=== PATIENT | male | born 1970 | race African-American/Black ===

== ENCOUNTER 2018-06-10 17:34 | Emergency (ER) | payer OTHER ==
[~2018-06-10] VITALS: Ht 170.2 cm; Wt 65.8 kg
[2018-06-10 17:55] VITALS: BP 159/93
[2018-06-10] MEDS ORDERED: AMOX1TAB11 PO (18:19)
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
== END 2018-06-10 18:41 | disposition home or self-care (01) ==
LOC: ER 17:34
DX: S61.451A Open bite of right hand, initial encounter (principal); W50.3XXA Accidental bite by another person, initial encounter; Y93.89 Activity, other specified; Y92.89 Other specified places as the place of occurrence of the external cause; Y99.8 Other external cause status
CPT/HCPCS: 99283

== ENCOUNTER 2018-12-11 16:37 | Emergency (ER) | payer OTHER ==
[~2018-12-11] VITALS: Ht 170.2 cm; Wt 65.8 kg
[~2018-12-11 16:37] MED LIST: AMOX1TAB11 PO
[2018-12-11] MEDS ORDERED: IV NORMAL SALINE 1000ML BAG 1,000 ML IV SCH (16:54)
[2018-12-11] MEDS ORDERED: ONDANSETRON PF 4 MG/2 ML VIAL. IV ONE (17:00)
[2018-12-11] MEDS ORDERED: FAMOTIDINE 20 MG/2 ML VIAL IVP ONE (17:00)
[2018-12-11] MEDS ORDERED: LIDO:MAALOX 1:1 20 ML SINGLE DOSE. SWSW ONE (17:00)
--- NOTE | 2018-12-11 17:13 | PHYS DOC ---
Past Medical History Past Medical History: No Pertinent History (BEAU KENNY MD) Past Surgical History: No Surgical History (BEAU KENNY MD) Alcohol Use: None Drug Use: Marijuana Social History Narrative: Denies other drug use (BEAU KENNY MD) Adult General Chief Complaint Chief Complaint: NAUSEA/VOMITING/DIARRHA HPI HPI Patient is a 47 y/o male who presents to the ED for evaluation. He reports developing some generalized aching upper abdominal pain about 5 days ago, and the pain has been fairly constant. He has had a few episodes of vomiting, but has not been eating as much because of his nausea and pain. He last vomited about 2 days ago. He has had some mild loose stools, but nothing of significance. He has not had any fevers or chills. He denies any chest pain shortness of breath. He does admit to smoking marijuana several times daily, but denies any other drug use or alcohol use. There are no particular alleviating or exacerbating factors to his symptoms. (BEAU KENNY MD) Review of Systems Review of Systems Constitutional: Denies fever or chills [] Eyes: Denies change in visual acuity, redness, or eye pain [] HENT: Denies nasal congestion or sore throat [] Respiratory: Denies cough or shortness of breath [] Cardiovascular: The patient denies any shortness of breath, chest pain, palpitations, or orthopnea [] GI: No additional information not addressed in HPI [] : Denies dysuria or hematuria [] Musculoskeletal: Denies back pain or joint pain [] Integument: Denies rash or skin lesions [] Neurologic: Denies headache, focal weakness or sensory changes [] Endocrine: Denies polyuria or polydipsia [] All other systems were reviewed and found to be within normal limits, except as documented in this note. (BEAU KENNY MD) Current Medications Current Medications Current Medications Medications (Trade) Dose Ordered Sig/Addison Start Time Stop Time Status Last Admin Dose Admin Famotidine (Pepcid Vial) 20 mg 1X ONCE 12/11/18 17:00 12/11/18 17:01 DC 12/11/18 17:39 20 MG Multi-Ingredient Mouthwash/Gargle (Gi Cocktail) 20 ml 1X ONCE 12/11/18 17:00 12/11/18 17:01 DC 11/3/19 17:39 20 ML Ondansetron HCl (Zofran) 4 mg 1X ONCE 12/11/18 17:00 12/11/18 17:01 DC 12/11/18 17:39 4 MG Sodium Chloride 1,000 ml @ 1,000 mls/hr Q1H 12/11/18 16:54 12/11/18 17:53 DC 12/11/18 16:54 1,000 MLS/HR (ANTONIA HUMPHREYS MD) Allergies Allergies Allergies Coded Allergies Type Severity Reaction Last Updated Verified No Known Drug Allergies 06/10/18 No (ANTONIA HUMPHREYS MD) Physical Exam Physical Exam PHYSICAL EXAM: CONSTITUTIONAL: Well developed, well nourished HEAD: normocephalic, atraumatic EENT: PERRL, EOMI. Conjunctivae normal color, sclerae non-icteric; moist mucous membranes. NECK: Supple, non-tender; no meningismus. LUNGS: Lungs CTA, breathing even and unlabored. Normal air movement. HEART: Regular rate and rhythm, no murmur CHEST: No deformity; non-tender ABDOMEN: The abdomen is soft, there is very mild epigastric and left upper quadrant tenderness to palpation, the remainder the abdomen is soft and non-tender, no masses or bruits. Normal bowel sounds are present. EXTREM: Normal ROM; no deformity, no calf tenderness. Normal pulses palpable in all extremities. There is no pedal edema. SKIN: No rash; no diaphoresis NEURO: Alert; normal speech and cognition; CN's grossly intact; strength grossly intact without focal deficit. BACK: No CVA TTP. (BEAU KENNY MD) Current Patient Data Vital Signs Vital Signs Date Time Temp Pulse Resp B/P (MAP) Pulse Ox O2 Delivery O2 Flow Rate FiO2 12/11/18 16:50 98.3 87 16 157/95 (115) 98 Room Air 98.3 (ANTONIA HUMPHREYS MD) Lab Values Laboratory Tests Test 12/11/18 17:05 12/11/18 17:31 Urine Collection Type Unknown Urine Color Sylwia Urine Clarity Clear Urine pH 6.0 Urine Specific [place] >=1.030 Urine Protein 100 mg/dL (NEG-TRACE) Urine Glucose (UA) Negative mg/dL (NEG) Urine Ketones (Stick) Trace mg/dL (NEG) Urine Blood Large (NEG) Urine Nitrite Negative (NEG) Urine Bilirubin Negative (NEG) Urine Urobilinogen Dipstick 0.2 mg/dL (0.2 mg/dL) Urine Leukocyte Esterase Trace (NEG) Urine RBC 11-20 /HPF (0-2) Urine WBC 1-4 /HPF (0-4) Urine Squamous Epithelial Cells Few /LPF Urine Amorphous Sediment Present /HPF Urine Bacteria Few /HPF (0-FEW) Urine Mucus Mod /LPF White Blood Count 8.9 x10^3/uL (4.0-11.0) Red Blood Count 5.42 x10^6/uL (4.30-5.70) Hemoglobin 14.3 g/dL (13.0-17.5) Hematocrit 42.8 % (39.0-53.0) Mean Corpuscular Volume 79 fL (79-100) Mean Corpuscular Hemoglobin 26 pg (25-35) Mean Corpuscular Hemoglobin Concent 33 g/dL (31-37) Red Cell Distribution Width 13.3 % (11.5-14.5) Platelet Count 204 x10^3/uL (140-400) Neutrophils (%) (Auto) 75 % (31-73) H Lymphocytes (%) (Auto) 11 % (24-48) L Monocytes (%) (Auto) 13 % (0-9) H Eosinophils (%) (Auto) 0 % (0-3) Basophils (%) (Auto) 0 % (0-3) Neutrophils # (Auto) 6.7 x10^3/uL (1.8-7.7) Lymphocytes # (Auto) 1.0 x10^3/uL (1.0-4.8) Monocytes # (Auto) 1.2 x10^3/uL (0.0-1.1) H Eosinophils # (Auto) 0.0 x10^3/uL (0.0-0.7) Basophils # (Auto) 0.0 x10^3/uL (0.0-0.2) Sodium Level 135 mmol/L (136-145) L Potassium Level 3.4 mmol/L (3.5-5.1) L Chloride Level 97 mmol/L (98-107) L Carbon Dioxide Level 30 mmol/L (21-32) Anion Gap 8 (6-14) Blood Urea Nitrogen 14 mg/dL (8-26) Creatinine 0.8 mg/dL (0.7-1.3) Estimated GFR (Cockcroft-Gault) 124.3 BUN/Creatinine Ratio 18 (6-20) Glucose Level 129 mg/dL (70-99) H Calcium Level 9.2 mg/dL (8.5-10.1) Total Bilirubin 0.4 mg/dL (0.2-1.0) Aspartate Amino Transferase (AST) 23 U/L (15-37) Alanine Aminotransferase (ALT) 30 U/L (16-63) Alkaline Phosphatase 91 U/L (46-116) Troponin I Quantitative < 0.017 ng/mL (0.000-0.055) Total Protein 7.7 g/dL (6.4-8.2) Albumin 3.8 g/dL (3.4-5.0) Albumin/Globulin Ratio 1.0 (1.0-1.7) Lipase 44 U/L (73-393) L Laboratory Tests 12/11/18 17:31 Laboratory Tests 12/11/18 17:31 (ANTONIA HUMPHREYS MD) Lab Values Laboratory Tests Test 12/11/18 17:05 12/11/18 17:31 Urine Collection Type Unknown Urine Color Sylwia Urine Clarity Clear Urine pH 6.0 Urine Specific [place] >=1.030 Urine Protein 100 mg/dL (NEG-TRACE) Urine Glucose (UA) Negative mg/dL (NEG) Urine Ketones (Stick) Trace mg/dL (NEG) Urine Blood Large (NEG) Urine Nitrite Negative (NEG) Urine Bilirubin Negative (NEG) Urine Urobilinogen Dipstick 0.2 mg/dL (0.2 mg/dL) Urine Leukocyte Esterase Trace (NEG) Urine RBC 11-20 /HPF (0-2) Urine WBC 1-4 /HPF (0-4) Urine Squamous Epithelial Cells Few /LPF Urine Amorphous Sediment Present /HPF Urine Bacteria Few /HPF (0-FEW) Urine Mucus Mod /LPF White Blood Count 8.9 x10^3/uL (4.0-11.0) Red Blood Count 5.42 x10^6/uL (4.30-5.70) Hemoglobin 14.3 g/dL (13.0-17.5) Hematocrit 42.8 % (39.0-53.0) Mean Corpuscular Volume 79 fL (79-100) Mean Corpuscular Hemoglobin 26 pg (25-35) Mean Corpuscular Hemoglobin Concent 33 g/dL (31-37) Red Cell Distribution Width 13.3 % (11.5-14.5) Platelet Count 204 x10^3/uL (140-400) Neutrophils (%) (Auto) 75 % (31-73) H Lymphocytes (%) (Auto) 11 % (24-48) L Monocytes (%) (Auto) 13 % (0-9) H Eosinophils (%) (Auto) 0 % (0-3) Basophils (%) (Auto) 0 % (0-3) Neutrophils # (Auto) 6.7 x10^3/uL (1.8-7.7) Lymphocytes # (Auto) 1.0 x10^3/uL (1.0-4.8) Monocytes # (Auto) 1.2 x10^3/uL (0.0-1.1) H Eosinophils # (Auto) 0.0 x10^3/uL (0.0-0.7) Basophils # (Auto) 0.0 x10^3/uL (0.0-0.2) Sodium Level 135 mmol/L (136-145) L Potassium Level 3.4 mmol/L (3.5-5.1) L Chloride Level 97 mmol/L (98-107) L Carbon Dioxide Level 30 mmol/L (21-32) Anion Gap 8 (6-14) Blood Urea Nitrogen 14 mg/dL (8-26) Creatinine 0.8 mg/dL (0.7-1.3) Estimated GFR (Cockcroft-Gault) 124.3 BUN/Creatinine Ratio 18 (6-20) Glucose Level 129 mg/dL (70-99) H Calcium Level 9.2 mg/dL (8.5-10.1) Total Bilirubin Pending Aspartate Amino Transferase (AST) Pending Alanine Aminotransferase (ALT) Pending Alkaline Phosphatase Pending Total Protein Pending Albumin Pending Albumin/Globulin Ratio Pending Lipase Pending Laboratory Tests 12/11/18 17:31 Laboratory Tests 12/11/18 17:31 (BEAU KENNY MD) EKG EKG []Normal sinus rhythm at a rate of 74 beats for minute, normal axis, normal intervals, rare PVC, without acute ischemic ST/T changes. (BEAU KENNY MD) Radiology/Procedures Radiology/Procedures [] (BEAU KENNY MD) Radiology/Procedures [facility] [address] [place] [address] IMAGING REPORT Signed PATIENT: SHELBIE RAMIREZ CACCOUNT: [id number] : 1970 LOCATION: ER AGE: 47 SEX: M EXAM STATUS: REG ER ORD. PHYSICIAN: BEAU KENNY MD REASON: abd pain, hematuria PROCEDURE: CT ABDOMEN PELVIS WO CONTRAST Exam: CT abdomen and pelvis without contrast INDICATION: Abdominal pain TECHNIQUE: Sequential axial images through the abdomen and pelvis obtained without IV contrast. Sagittal and coronal reformatted images were reconstructed from the axial data and reviewed. Comparisons: None FINDINGS: Heart size is normal. No pericardial effusion. Patchy airspace disease noted within the medial aspect of the right middle lobe. No pleural effusion. Evaluation of the solid organs is limited secondary to noncontrast technique. Liver, spleen, pancreas, gallbladder and adrenals are unremarkable. No perinephric inflammation or hydronephrosis. No renal or ureteral calculi are identified. Bladder is decompressed not well evaluated. Prostate is not enlarged. Large and small bowel are unremarkable. Appendix is not identified. No free intra-abdominal air or fluid. No obstruction. Abdominal aorta has normal course and caliber. No suspicious osseous lesions or acute fractures. IMPRESSION: 1. Patchy airspace disease at the right middle lung, may be infectious or inflammatory in etiology. 2. No renal or ureteral calculi. No evidence for obstructive uropathy. 3. Evaluation of the abdomen is limited secondary to lack of IV contrast and and the patient's lack of intraperitoneal fat. No acute processes identified. If symptoms persist or worsen consider repeat imaging. Exposure: One or more of the following in the visualized dose reduction techniques were utilized for this examination: 1. Automated exposure control 2. Adjustment of the MA and/or KV according to patient size 3. Use of iterative of reconstructive technique Electronically signed by: Rosie Ferrell MD (12/11/2018 6:18 PM) [facility] DICTATED and SIGNED BY: ROSIE FERRELL MD DATE: 12/11/181817 (ANTONIA HUMPHREYS MD) Course & Med Decision Making Course & Med Decision Making Pertinent Labs and Imaging studies reviewed. (See chart for details) [] 6:00 PM: Patient condition remains stable. Care was turned over to Dr. Humphreys at shift change, pending CT, and hepatic function panel and lipase. Report given. Patient's exam is not highly suspicious for renal stone, although I have no other obvious etiology for his gross hematuria. He is having no urinary complaints. (BEAU KENNY MD) Course & Med Decision Making CT imaging reviewed, no acute findings to explain pain in the left upper quadrant. CT does have evidence of RML patchy consolidation however patient denies cough/congestion/SOB - this is likely incidental finding and could be inflammatory vs infectious. At this time will plan for dc home. Discussed return precautions with patient. (ANTONIA HUMPHREYS MD) Dragon Disclaimer Dragon Disclaimer This electronic medical record was generated, in whole or in part, using a voice recognition dictation system. (BEAU KENNY MD) Departure Departure Impression: Primary Impression: Nausea & vomiting Additional Impression: Diarrhea Disposition: HOME, SELF-CARE Condition: IMPROVED Referrals: NO PCP (PCP) Patient Instructions: Nausea and Vomiting, [id number] Additional Instructions: Recommend follow up with PCP 3 - 5 days Return to the ER with worsening symptoms, intractable pain, fever, altered mental status Tylenol/Motrin as needed for pain Take zofran as needed for nausea Scripts Ondansetron Hcl (ZOFRAN) 4 Mg Tablet 1 TAB PO PRN Q6-8HRS for nausea, #12 TAB Prov: ANTONIA HUMPHREYS MD 12/11/18 Problem Qualifiers Primary Impression: Nausea & vomiting Vomiting type: unspecified Vomiting Intractability: unspecified Qualified Codes: R11.2 - Nausea with vomiting, unspecified Additional Impression: Diarrhea Diarrhea type: unspecified type Qualified Codes: R19.7 - Diarrhea, uns pecified BEAU KENNY MD Dec 11, 2018 17:13 ANTONIA HUMPHREYS MD Dec 11, 2018 18:33
[2018-12-11 17:17] LABS: BILIRUBIN,URINE NEGATIVE (NEG); CLARITY,URINE CLEAR; COLOR,URINE AMBER; NITRITE,URINE NEGATIVE (NEG); PROTEIN,URINE 100 mg/dL (NEG-TRACE); UROBILINOGEN,URINE 0.2 mg/dL (0.2 mg/dL)
[2018-12-11 17:23] LABS: BACTERIA,URINE FEW /HPF (0-FEW); SQUAMOUS EPITHELIAL CELL,UR FEW /LPF
[2018-12-11 17:24] LABS: AMORPHOUS SEDIMENT,UR PRESENT /HPF
[2018-12-11 17:43] LABS: BASO % 0 % (0-3); EOS % 0 % (0-3); HEMATOCRIT 42.8 % (39.0-53.0); HEMOGLOBIN 14.3 g/dL (13.0-17.5); LYMPH % 11 % (24-48); MEAN CORPUSCULAR HEMOGLOBIN 26 pg (25-35); MEAN CORPUSCULAR HGB CONC 33 g/dL (31-37); MEAN CORPUSCULAR VOLUME 79 fL (79-100); MONO # 1.2 x10^3/uL (0.0-1.1); MONO % 13 % (0-9); NEUT # 6.7 x10^3/uL (1.8-7.7); NEUT % 75 % (31-73); PLATELET COUNT 204 x10^3/uL (140-400); RED BLOOD COUNT 5.42 x10^6/uL (4.30-5.70); RED CELL DISTRIBUTION WIDTH 13.3 % (11.5-14.5); WHITE BLOOD COUNT 8.9 x10^3/uL (4.0-11.0)
[2018-12-11 17:49] VITALS: BP 177/92
[2018-12-11 17:55] LABS: CALCIUM 9.2 mg/dL (8.5-10.1); CREATININE 0.8 mg/dL (0.7-1.3); GFR 124.3; POTASSIUM 3.4 mmol/L (3.5-5.1)
[2018-12-11 18:01] LABS: ALBUMIN 3.8 g/dL (3.4-5.0); TOTAL BILIRUBIN 0.4 mg/dL (0.2-1.0); TOTAL PROTEIN 7.7 g/dL (6.4-8.2)
--- NOTE | 2018-12-11 18:21 | RAD ---
Exam: CT abdomen and pelvis without contrast INDICATION: Abdominal pain TECHNIQUE: Sequential axial images through the abdomen and pelvis obtained without IV contrast. Sagittal and coronal reformatted images were reconstructed from the axial data and reviewed. Comparisons: None FINDINGS: Heart size is normal. No pericardial effusion. Patchy airspace disease noted within the medial aspect of the right middle lobe. No pleural effusion. Evaluation of the solid organs is limited secondary to noncontrast technique. Liver, spleen, pancreas, gallbladder and adrenals are unremarkable. No perinephric inflammation or hydronephrosis. No renal or ureteral calculi are identified. Bladder is decompressed not well evaluated. Prostate is not enlarged. Large and small bowel are unremarkable. Appendix is not identified. No free intra-abdominal air or fluid. No obstruction. Abdominal aorta has normal course and caliber. No suspicious osseous lesions or acute fractures. IMPRESSION: 1. Patchy airspace disease at the right middle lung, may be infectious or inflammatory in etiology. 2. No renal or ureteral calculi. No evidence for obstructive uropathy. 3. Evaluation of the abdomen is limited secondary to lack of IV contrast and and the patient's lack of intraperitoneal fat. No acute processes identified. If symptoms persist or worsen consider repeat imaging. Exposure: One or more of the following in the visualized dose reduction techniques were utilized for this examination: 1. Automated exposure control 2. Adjustment of the MA and/or KV according to patient size 3. Use of iterative of reconstructive technique Electronically signed by: Rosie Reynoso MD (12/11/2018 6:18 PM) [facility]
[2018-12-11] MEDS ORDERED: ONDA4TAB7 PO (18:32)
--- NOTE | 2018-12-12 08:48 | EKG ---
[facility] [address] [place] [address] Test Date: 2018-12-11 Test Time: 17:44:47 Pat Name: SHELBIE RAMIREZ Department: Room: Gender: M [employer] Supervisor: : 1970 Requested By: BEAU KENNY Order Number: [id number] Reading MD: Measurements Intervals [place] Rate: 74 P: 90 NM: 120 QRS: 42 QRSD: 98 T: 14 QT: 370 QTc: 415 Interpretive Statements SINUS RHYTHM VENTRICULAR PREMATURE COMPLEX(ES) ABNORMAL ECG No previous ECG available for comparison
== END 2018-12-11 18:38 | disposition home or self-care (01) ==
LOC: ER 16:37
DX: R11.2 Nausea with vomiting, unspecified (principal); R19.7 Diarrhea, unspecified; R10.84 Generalized abdominal pain
CPT/HCPCS: 36415; 74176; 80053; 81001; 83690; 84484; 85025; 93005; 96361; 96374; 96375; 99285; J2405; J3490; J7030